=== PATIENT | female | born 1975 | race Caucasian/White ===

== ENCOUNTER 2018-04-01 19:35 | Emergency (ER) | payer BC ==
[~2018-04-01] VITALS: Ht 157.5 cm; Wt 68.7 kg
[~2018-04-01 19:35] MED LIST: CELEXA20 MG; CLARITIN10 M3; IBUPROFEN800 MG PO; KEFLEX250 MG/5 M PO; KEFLEX500 MG PO; NAPROSYN500 MG PO; OMEPRAZOLE40 M1 PO; REGLAN10 MG PO; SPRINTEC1 EACH; VENLAFAXINE HC150 M1 PO
[2018-04-01 20:37] LABS: APPEARANCE SL.HAZY ((CLEAR)); BILIRUBIN NEGATIVE; BLOOD NEGATIVE; COLOR AMBER ((YELLOW)); GLUCOSE (STRIP) NEGATIVE; KETONES 5; LEUKOCYTES NEGATIVE; NITRITE NEGATIVE; PROTEIN (STRIP) NEGATIVE; SPECIFIC GRAVITY 1.026 (1.000-1.030)
[2018-04-01 21:17] LABS: RED BLOOD CELLS NONE SEEN /HPF (0-5)
[2018-04-01 21:18] LABS: BACTERIA 2+ /HPF; EPITHELIAL CELLS 2+ /HPF; MUCUS 3+ /LPF
[2018-04-01 21:19] LABS: HYALINE CASTS RARE /LPF
[2018-04-01] MEDS ORDERED: INDOCIN50 MG PO (21:42)
[2018-04-01] MEDS ORDERED: CEFDINIR300 MG PO (21:42)
[2018-04-01 21:49] VITALS: BP 122/79
== END 2018-04-01 21:51 | disposition home or self-care (01) ==
LOC: EME 19:35
PROVIDERS: Physician Assistant
DX: N39.0 Urinary tract infection, site not specified (principal); Z88.5 Allergy status to narcotic agent; Z88.8 Allergy status to other drugs, medicaments and biological substances
CPT/HCPCS: 74018; 81003; 87086; 99281; 99284